=== PATIENT | female | born 1945 | race Caucasian/White ===

== ENCOUNTER 2022-09-19 14:41 | Emergency (ER) | payer OTHER, SELFPAY ==
[2022-09-19] VITALS (16 sets, daily range): BP systolic 138–169; BP diastolic 74–115; PULSE 37–101; RESP 18; TEMP 36.1; O2SAT 84–99; BMI 26.6
--- NOTE | 2022-09-19 15:35 | ED_ITS ---
HPI - General Adult General Chief complaint: Weakness Stated complaint: Shortness of breath, Vomiting, Weakness Time Seen by Provider: 09/19/22 15:10 History of Present Illness HPI narrative: This 77-year-old female comes in reporting generalized malaise with some cough, nasal congestion, and shortness of breath. She began to feel some symptoms about 3 days ago but things turned worse today. She arrives with normal vital signs and is getting sufficient oximetry on room air. She did have some nausea and vomiting prior to arrival today. Related Data Previous Rx's Medication Instructions Recorded metoprolol succinate 25 mg 12.5 mg PO DAILY #20 tabs 09/19/22 tablet,extended release 24 hr Allergies Allergy/AdvReac Type Severity Reaction Status Date / Time No Known Drug Allergies Allergy Verified 09/19/22 14:51 Review of Systems Status of ROS: Reports: 10 or more systems reviewed and unremarkable except as noted in History and below Narrative: Constitutional: No fevers, no weight gain or loss. Eyes: No discharge. No vision changes. HENT: Nasal congestion, no sore throat, no ear pain. Cardiovascular: No chest pain, no palpitations. Respiratory: She reports cough with some shortness of breath. Gastrointestinal: No abdominal pain, no diarrhea. She had some vomiting today prior to arrival. Genitourinary: No dysuria, no hematuria. Musculoskeletal: Normal range of motion. Skin: No rashes, no pruritis. Neurological: No dizziness, weakness, sensory change, speech change. Endo/Heme/Allergies: No bruising or bleeding. No polydipsia. Pysch: no suicidality, no anxiety, no insomnia. All other systems reviewed and are negative. PFSH PFS Social History Smoking Status: Never smoker Do you use any of these nicotine containing products: None Second hand tobacco smoke exposure: No How often do you have a drink containing alcohol: 2-3 times a week How many standard drinks containing alcohol do you have on a typical day: 1 or 2 How often do you have six or more drinks on one occasion: Never AUDIT-C Alcohol total score: 3 Non-prescribed substance use: denies use service: No Exam Const: Vital Signs, click to edit/add: Vital Signs - 24 hr 09/19/22 14:52 09/19/22 15:03 Temperature 96.9 F L Pulse Rate [Pulse Oximeter] 75 81 Respiratory Rate 18 Blood Pressure [Ri ght Forearm] 141/93 H 138/74 Pulse Oximetry 99 99 Oxygen Delivery Me thod Room Air Room Air Course Vital Signs Vital signs: Initial Vital Signs Temperature 96.9 F L 09/19/22 14:52 Temperature Source Temporal Artery Scan 09/19/22 14:52 Pulse Rate 75 09/19/22 14:52 Pulse Rhythm 09/19/22 14:52 Blood Pressure 141/93 H 09/19/22 14:52 Blood Pressure Mean 109 09/19/22 14:52 Blood Pressure Position Supine 09/19/22 14:52 Pulse Oximetry 99 09/19/22 14:52 Oxygen Delivery Method 09/19/22 14:52 Vital Signs Temperature 96.9 F L 09/19/22 14:52 Pulse Rate 75 09/19/22 14:52 Blood Pressure 141/93 H 09/19/22 14:52 Pulse Oximetry 99 09/19/22 14:52 Oxygen Delivery Method 09/19/22 14:52 Temperature 96.9 F L 09/19/22 14:52 Pulse Rate 81 09/19/22 15:03 Respiratory Rate 18 09/19/22 15:03 Blood Pressure 138/74 09/19/22 15:03 Pulse Oximetry 99 09/19/22 15:03 Oxygen Delivery Method 09/19/22 15:03 Medical Decision Making MDM Narrative Medical decision making narrative: This patient arrives with cough and feeling lightheaded. She also had some nausea with vomiting. Her vital signs on arrival are in normal range. I did consider the possibility of sepsis. SIRS Criteria for sepsis involve any two of the following criteria: Temperature >38 or <36C; heart rate > 90 bpm; Respiratory rate >20 breaths/minute or partial pressure of CO2 < 32 mmHg. Based on this this patient does not meet criteria for sepsis workup and treatment. An IV was established where the patient received a L of normal saline and 4 mg of Zofran. She had an irregular rhythm and EKG showed frequent PVCs in a pattern of bigeminy. After receiving fluids the PVCs were much less frequent. Patient states that she is feeling better. Her glucose returns a bit elevated just over 200. I advised her to follow-up in this regard to check for the possibility of diabetes. She does have a follow-up appointment in a few weeks with her primary physician. Lab results returned negative for COVID, influenza, and RSV. She is likely encountering some other viral upper respiratory infection. The patient states that she feels significantly better and feels okay to return home. I did provide prescription for a few tablets of Ativan, Zofran, and metoprolol ER 25 mg. She is continuing to have rather frequent PACs and this may be worth a try. She can follow-up with her primary physician to further evaluate this. Lab Data Labs: Lab Results 09/19/22 09/19/22 09/19/22 Range/Units 15:00 16:00 16:00 WBC 6.11 (4.50-11.00) K/uL RBC 5.01 (4.00-5.20) m/uL Hgb 14.8 (12.0-16.0) gm/dL Hct 45.3 (33.0-51.0) % MCV 90 (80-100) fL MCH 30 (26-34) pg MCHC 33 (32-36) gm/dL RDW Coeff of [place]anza 13.4 (11.5-15.5) % Plt Count 172 (140-440) K/uL Neut % (Auto) 86.5 H (42.0-72.0) % Lymph % (Auto) 10.6 L (20-44) % [place] % (Auto) 2.5 (0.0-11.0) % Eos % (Auto) 0.0 (0.0-7.0) % Baso % (Auto) 0.2 (0.0-3.0) % Neut # (Auto) 5.30 (1.7-7.0) K/uL Lymph # (Auto) 0.60 L (0.90-2.90) K/uL [place] # (Auto) 0.20 (0.00-0.90) K/UL Eos # (Auto) 0.00 (0.00-0.50) K/uL Baso # (Auto) 0.01 (0.00-0.30) K/uL Sodium 139 (135-149) mmol/L Potassium 4.1 (3.6-5.1) mmol/L Chloride 106 (96-114) mmol/L Carbon Dioxide 23 (20-32) mmol/L BUN 22 (7-30) mg/dL Creatinine 0.8 (0.5-1.5) mg/dL Estimated Creat Clear 42.70 Estimated GFR 75 ml/min Glucose 206 H (60-115) mg/dL Calcium 9.2 (8.4-10.6) mg/dL Magnesium (1.5-2.6) mg/dL SARS-CoV-2 (PCR) Negative SARS-CoV-2 (Negative) Influenza Type A (PCR) Negative PCR FLU A (Negative) Influenza Type B (PCR) Negative PCR FLU B (Negative) RSV (PCR) Negative PCR RSV (Negative) POC Troponin I (0.01-0.04) ng/ml 09/19/22 09/19/22 Range/Units 16:00 16:00 WBC (4.50-11.00) K/uL RBC (4.00-5.20) m/uL Hgb (12.0-16.0) gm/dL Hct (33.0-51.0) % MCV (80-100) fL MCH (26-34) pg MCHC (32-36) gm/dL RDW Coeff of [place]anza (11.5-15.5) % Plt Count (140-440) K/uL Neut % (Auto) (42.0-72.0) % Lymph % (Auto) (20-44) % [place] % (Auto) (0.0-11.0) % Eos % (Auto) (0.0-7.0) % Baso % (Auto) (0.0-3.0) % Neut # (Auto) (1.7-7.0) K/uL Lymph # (Auto) (0.90-2.90) K/uL [place] # (Auto) (0.00-0.90) K/UL Eos # (Auto) (0.00-0.50) K/uL Baso # (Auto) (0.00-0.30) K/uL Sodium (135-149) mmol/L Potassium (3.6-5.1) mmol/L Chloride (96-114) mmol/L Carbon Dioxide (20-32) mmol/L BUN (7-30) mg/dL Creatinine (0.5-1.5) mg/dL Estimated Creat Clear Estimated GFR ml/min Glucose (60-115) mg/dL Calcium (8.4-10.6) mg/dL Magnesium 2.0 (1.5-2.6) mg/dL SARS-CoV-2 (PCR) (Negative) Influenza Type A (PCR) (Negative) Influenza Type B (PCR) (Negative) RSV (PCR) (Negative) POC Troponin I 0.00 L (0.01-0.04) ng/ml ECG Data Attestation: I personally reviewed and interpreted this ECG as follows: Interpretation: Sinus rhythm with frequent PACs and a pattern of bigeminy. Rate is 68 beats per minute. There are no specific ST or T-wave abnormalities. Discharge Plan Discharge Clinical Impression: Acute upper respiratory infection, Atrial dysrhythmia Patient Disposition: Home w/ Parent or Adult Condition: Improved Additional Instructions: Take medication as prescribed and needed. Follow up with MD as scheduled or return as needed. Prescriptions: New metoprolol succinate 25 mg tablet extended release 24 hr 12.5 mg PO DAILY Qty: 20 2RF Follow Up/Referrals: Provider,Not a Local [Primary Care Provider] - Stand Alone Forms: [employer] Info Instructions
[2022-09-19 15:51] LABS: PCR FLU A Negative PCR FLU A (Negative); PCR FLU B Negative PCR FLU B (Negative); PCR RSV Negative PCR RSV (Negative)
[2022-09-19 15:56] LABS: SARS PCR* Negative SARS-CoV-2 (Negative)
[2022-09-19 16:14] LABS: Basophils Absolute Auto 0.01 K/uL (0.00-0.30); Basophils Percent Auto 0.2 % (0.0-3.0); Hematocrit 45.3 % (33.0-51.0); Hemoglobin* 14.8 gm/dL (12.0-16.0); Immature Granulocytes Abs Auto 0.01 K/uL (0.00-0.30); Immature Granulocytes Pct Auto 0.2 %; Lymphocytes Percent Auto 10.6 % (20-44); Mean Corpuscular HGB Conc 33 gm/dL (32-36); Mean Corpuscular Hemoglobin 30 pg (26-34); Mean Corpuscular Volume 90 fL (80-100); Monocytes Percent Auto 2.5 % (0.0-11.0); Neutrophils Percent Auto 86.5 % (42.0-72.0); Platelet Count* 172 K/uL (140-440); RDW Coefficient of Variation % 13.4 % (11.5-15.5); Red Blood Count 5.01 m/uL (4.00-5.20); White Blood Count* 6.11 K/uL (4.50-11.00)
[2022-09-19] MEDS: ONDANSETRON 2 MG/ML inj 4 MG IVP (16:14)
[2022-09-19] MEDS: 0.9 % SODIUM CHLORIDE 1000 ml 1,000 ML IV (16:14)
[2022-09-19 16:17] LABS: Slide Review Reflex No
[2022-09-19 16:25] LABS: Chloride* 106 mmol/L (96-114)
[2022-09-19 16:26] LABS: Potassium* 4.1 mmol/L (3.6-5.1); Sodium* 139 mmol/L (135-149)
[2022-09-19 16:28] LABS: Creatinine* 0.8 mg/dL (0.5-1.5); Estimated Glomerular Filt Rate 75 ml/min
[2022-09-19 16:29] LABS: Blood Urea Nitrogen* 22 mg/dL (7-30); Calcium* 9.2 mg/dL (8.4-10.6); Carbon Dioxide* 23 mmol/L (20-32); Glucose* 206 mg/dL (60-115)
[2022-09-19] MEDS: LORazepam 2 MG/ML inj 0.5 MG IV (18:06)
== END 2022-09-19 19:18 | disposition home or self-care (01) ==
PROVIDERS: Emergency Provider Emergency Medicine Emergency Medical Services
DX: J06.9 Acute upper respiratory infection, unspecified (principal); I49.9 Cardiac arrhythmia, unspecified
CPT/HCPCS: 36415; 80048; 83735; 84484; 85025; 87502; 87634; 87635; 96374; 96375; 99284; 99285; J2060; J2405; J7030

== ENCOUNTER 2025-02-07 09:32 | Outpatient (CLI) | payer OTHER, SELFPAY | END 2025-02-07 09:33 | disposition home or self-care (01) | LOC: NFLDREF 02-11 22:35 | PROVIDERS: Visit Provider Physician Assistant Medical | DX: E78.2 Mixed hyperlipidemia (principal); I10 Essential (primary) hypertension; F41.8 Other specified anxiety disorders; R41.89 Other symptoms and signs involving cognitive functions and awareness; Z13.21 Encounter for screening for nutritional disorder | CPT/HCPCS: 80053; 80061; 82607; 84443 ==